=== PATIENT | female | born 1950 | race Caucasian/White ===

== ENCOUNTER 2020-06-14 07:06 | Outpatient (CLI) | payer OTHER ==
[2020-06-15 13:01] LABS: SARS-CoV-2 MS2 Positive; SARS-CoV-2 N Gene Negative; SARS-CoV-2 S Gene Negative; SARS-CoV-2 by NAA Not Detected (NotDetected); SARS-CoV-2 orf1ab Negative
== END 2020-06-14 07:07 | disposition home or self-care (01) ==
LOC: LABBT 07:06
PROVIDERS: ATTEND Ophthalmology Retina Specialist
DX: H35.342 Macular cyst, hole, or pseudohole, left eye (principal); Z20.828 Contact with and (suspected) exposure to other viral communicable diseases
CPT/HCPCS: 87635; U0003

== ENCOUNTER 2020-06-17 07:37 | Day surgery (SDC) | payer MEDICARE, OTHER ==
[2020-06-16 09:52] VITALS: BMI 31.1
[~2020-06-17 07:37] MED LIST: Fluorouracil 100 MG, Enoxaparin Sodium 25 MG, EPINEPHrine 0.3 MG in Ophthalmic Irrigati... IRR SCH
[2020-06-17] MEDS ORDERED: Phenylephrine 2.5% Ophth Soln 5 ML BOT ONE (07:46)
[2020-06-17] MEDS ORDERED: Cyclopentolate 1% Opth Drop 2 ML BOT ONE (07:47)
[2020-06-17] MEDS ORDERED: Midazolam HCl 2 mg/2 ml Vial ONE (07:58)
[2020-06-17] MEDS ORDERED: Fentanyl 100 MCG/2 ML VIAL ONE (07:58)
[2020-06-17] MEDS ORDERED: CEFAZOLIN 1 GM VIAL ONE (10:33)
[2020-06-17] MEDS ORDERED: Lidocaine 1% PF 5 ML VIAL ONE (10:33)
[2020-06-17] MEDS ORDERED: PROPOFOL 200 MG/20 ML VIAL ONE (10:33)
[2020-06-17] MEDS ORDERED: Triamcinolone 40 MG/ML VIAL ONE (10:33)
[2020-06-17] MEDS ORDERED: Indocyanine Green 25 MG/10 ML VIAL ONE (10:33)
[2020-06-17] MEDS ORDERED: Lidocaine 4% PF 5 ML AMP ONE (10:33)
[2020-06-17] MEDS ORDERED: Maxitrol 0.1% Opth Oint 3.5 GM TUBE ONE (10:33)
[2020-06-17] MEDS ORDERED: Bupivacaine PF 0.75% SDV 10 ML ONE (10:33)
--- NOTE | 2020-06-18 14:20 | OP ---
DATE OF PROCEDURE: 06/17/2020 PREOPERATIVE DIAGNOSIS: Macular hole, right eye. POSTOPERATIVE DIAGNOSIS: Macular hole, right eye. PROCEDURES PERFORMED: Pars plana vitrectomy and internal limiting membrane peel, right eye. ANESTHESIA: Local with monitored anesthesia care. PROCEDURE IN DETAIL: The patient was identified in the preoperative holding area. Appropriate informed consent for the planned surgical procedure on the right eye had been obtained. The patient was transported to the operative suite. Appropriate cardiopulmonary monitoring was established. Local anesthesia was obtained using retrobulbar modified Van Lint lid block using 50:50 mixture of 4% lidocaine and 0.75% bupivacaine. The patient was prepped and draped in usual sterile manner for ophthalmic surgery on the right eye. Lid speculum was placed in the right eye. A 27-gauge trocar was placed in the conjunctiva and sclera superotemporally, inferotemporally, supranasally. Infusion line was placed inferotemporally. Light pipe, vitreous cutter inserted to the eye. Core vitrectomy was performed. Indocyanine green dye was infused on the posterior pole x1, identifying the epiretinal membrane. The epiretinal membrane and internal limiting membrane were elevated along the inferotemporal arcade and peeled across the macula in one piece. Indirect ophthalmoscopy was used to examine the retina 360 degrees. No holes, breaks, or tears were identified. Laser was placed behind the sclerotomy sites. Complete air-fluid exchange was performed with 10 minutes being allowed for fluid to drain posteriorly. 28% sulfur hexafluoride gas was infused into the eye. Trocars were removed. Eye was noted to retain pressure well. Retrobulbar Kenalog and subconjunctival Ancef were placed. Antibiotic ointment was placed, and the eye was patched and shielded. The patient was taken to the postop recovery unit in good condition, having suffered no immediate perioperative complications. The patient was instructed to keep patch and shield on, avoid lifting or bending. Followup appointment with Dr. Vargas. Job ID: [id number]
== END 2020-06-17 11:05 | disposition home or self-care (01) ==
LOC: SDC 07:37
PROVIDERS: ATTEND Ophthalmology Retina Specialist
PROC: 08T43ZZ Resection of Right Vitreous, Percutaneous Approach (ICD-10-PCS; principal; 2020-06-17)
PROC: 08NE3ZZ Release Right Retina, Percutaneous Approach (ICD-10-PCS; 2020-06-17)
DX: H35.341 Macular cyst, hole, or pseudohole, right eye (principal); Z79.84 Long term (current) use of oral hypoglycemic drugs; Z79.899 Other long term (current) drug therapy; Z88.6 Allergy status to analgesic agent
CPT/HCPCS: 67025; J0171; J0690; J1650; J2001; J2250; J2704; J3010; J3301; J3490; J9190